=== PATIENT | male | born 1985 | race American Indian/Alaskan Native ===

== ENCOUNTER 2021-07-04 19:45 | Emergency (ER) | payer SELFPAY ==
[2021-07-05] MEDS ORDERED: ONDANSETRON 4 MG ODT TAB PO ONE (00:54)
[2021-07-05 01:22] LABS: Basophils % (Auto) 0.7 % (0.0-1.8); Eosinophils # (Auto) 0.2 K/mm3 (0.0-0.4); Eosinophils % (Auto) 2.5 % (0.0-4.3); Hemoglobin 15.7 gm/dl (11.8-15.2); Lymphocytes # (Auto) 2.9 K/mm3 (1.2-5.4); Lymphocytes % (Auto) 45.7 % (13.4-35.0); Mean Corpuscular HGB Conc 33 % (32-34); Mean Corpuscular Volume 84 fl (84-94); Monocytes # (Auto) 0.6 K/mm3 (0.0-0.8); Monocytes % (Auto) 9.9 % (0.0-7.3); Platelet Count 192 K/mm3 (140-440); Red Blood Count 5.62 M/mm3 (3.65-5.03); Red Cell Distribution Width 13.7 % (13.2-15.2)
--- NOTE | 2021-07-05 01:24 | Emergency Department Report ---
ED General Adult HPI - General Chief complaint: Back Pain/Injury Stated complaint: BACK PAIN/DIARRHEA Time Seen by Provider: 07/05/21 00:53 Source: patient Mode of arrival: Ambulatory Limitations: No Limitations - History of Present Illness Initial comments: Patient 36-year-old male who presents for right flank pain for the past 3 days patient states nausea and diarrhea. Been no fever or chills. However there is dysuria. Pain is described as cramping spasms at 5/10. Symptoms are exacerbated by movement. Patient is tolerating p.o. at this time without nausea vomiting however patient states he presented to the ER because he missed work yesterday and requires a work excuse to return to work. Patient drove self to ER patient appears alert and oriented x3 and nontoxic at this time. Severity scale (0 -10): 5 - Related Data Previous Rx's Medication Instructions Recorded Last Taken Type Loperamide [Imodium] 2 mg PO Q2HR PRN #12 capsule 07/05/21 Unknown Rx Allergies Allergy/AdvReac Type Severity Reaction Status Date / Time No Known Allergies Allergy Verified 07/05/21 01:34 ED Review of Systems ROS: Stated complaint: BACK PAIN/DIARRHEA Other details as noted in HPI Constitutional: denies: chills, fever Eyes: denies: eye pain, eye discharge, vision change ENT: denies: ear pain, throat pain Respiratory: denies: cough, shortness of breath, wheezing Cardiovascular: denies: chest pain, palpitations Endocrine: no symptoms reported Gastrointestinal: abdominal pain, nausea (Right flank), diarrhea. denies: vomiting, constipation, melena, hematochezia Genitourinary: denies: urgency, dysuria Musculoskeletal: back pain. denies: joint swelling, arthralgia Skin: denies: rash, lesions Neurological: denies: headache, weakness, paresthesias Psychiatric: denies: anxiety, depression Hematological/Lymphatic: denies: easy bleeding, easy bruising ED Past Medical Hx - Medications Home Medications: Home Medications Medication Instructions Recorded Confirmed Last Taken Type Loperamide [Imodium] 2 mg PO Q2HR PRN #12 capsule 07/05/21 Unknown Rx ED Physical Exam - General Limitations: No Limitations General appearance: alert, in no apparent distress - Head Head exam: Present: normocephalic, normal inspection - Eye Eye exam: Present: normal appearance, EOMI Pupils: Present: normal accommodation - ENT ENT exam: Present: mucous membranes moist - Neck Neck exam: Present: normal inspection, full ROM. Absent: tenderness, lymphadenopathy - Respiratory Respiratory exam: Present: normal lung sounds bilaterally. Absent: respiratory distress, wheezes, stridor, chest wall tenderness - Cardiovascular Cardiovascular Exam: Present: regular rate, normal rhythm, normal heart sounds. Absent: systolic murmur, diastolic murmur, rubs, gallop - GI/Abdominal GI/Abdominal exam: Present: soft, normal bowel sounds. Absent: distended, tenderness, guarding, rebound, rigid, bruit, hernia - Rectal Rectal exam: Present: deferred - Extremities Exam Extremities exam: Present: normal inspection, full ROM, normal capillary refill. Absent: tenderness - Back Exam Back exam: Present: normal inspection, full ROM, CVA tenderness (R). Absent: CVA tenderness (L) - Neurological Exam Neurological exam: Present: alert, oriented X3, CN II-XII intact, normal gait - Expanded Neurological Exam Expanded Patient oriented to: Present: person, place, time Speech: Present: fluid speech Best Eye Response (Duarte): (4) open spontaneously Best Motor Response (Duarte): (6) obeys commands Best Verbal Response (Duarte): (5) oriented Duarte Total: 15 - Psychiatric Psychiatric exam: Present: normal affect, normal mood - Skin Skin exam: Present: warm, dry, intact, normal color ED Course Vital Signs 07/04/21 20:15 Temperature 98.6 F Pulse Rate 74 Respiratory 20 Rate Blood Pressure 120/79 [Left] O2 Sat by Pulse 100 Oximetry ED Medical Decision Making - Lab Data Result diagrams: 07/05/21 00:58 07/05/21 00:58 Labs 07/05/21 07/05/21 00:58 00:58 WBC 6.3 RBC 5.62 H Hgb 15.7 H Hct 47.0 H MCV 84 MCH 28 MCHC 33 RDW 13.7 Plt Count 192 Lymph % (Auto) 45.7 H Hodgeman % (Auto) 9.9 H Eos % (Auto) 2.5 Baso % (Auto) 0.7 Lymph # (Auto) 2.9 Hodgeman # (Auto) 0.6 Eos # (Auto) 0.2 Baso # (Auto) 0.0 Seg Neutrophils % 41.2 Seg Neutrophils # 2.6 Sodium 141 Potassium 4.0 Chloride 103.5 Carbon Dioxide 26 Anion Gap 16 BUN 16 Creatinine 0.9 Estimated GFR > 60 BUN/Creatinine Ratio 18 Glucose 85 Calcium 10.0 Total Bilirubin 0.30 AST 18 ALT 17 Alkaline Phosphatase 69 Total Protein 7.3 Albumin 4.6 Albumin/Globulin Ratio 1.7 Lipase 23 - Radiology Data Radiology results: report reviewed, image reviewed ABDOMEN 1 VIEW INDICATION / CLINICAL INFORMATION: abd pain. COMPARISON: None available. FINDINGS: TUBES / LINES: None. BOWEL GAS PATTERN: No significant abnormality. FREE AIR / EXTRALUMINAL GAS: None seen. ADDITIONAL FINDINGS: No significant additional findings. IMPRESSION: 1. No significant abnormality. Signer Name: Compa Ahn MD Signed: 07/05/2021 1:38 AM Workstation Name: [id number] Transcribed By: LIO Dictated By: Compa Ahn MD Electronically Authenticated By: Compa Ahn MD Signed Date/Time: 07/05/21137 DD/ 7 TD/TT: - Medical Decision Making KUB is normal gas pattern. Labs are noted normal. Patient denies dysuria frequency or urgency. There is no fevers or chills. Plan DC to home, NSAIDs as needed as needed. Continue to hydrate. Follow-up with your doctor in 2 to 3 days. Patient continues to tolerate p.o. intake without nausea vomiting at this time. Patient DC'd home in no acute distress. Critical care attestation.: If time is entered above; I have spent that time in minutes in the direct care of this critically ill patient, excluding procedure time. ED Disposition Clinical Impression: Abdominal pain Qualifiers: Abdominal location: generalized Qualified Code(s): R10.84 - Generalized abdominal pain Disposition: HOME / SELF CARE / HOMELESS Is pt being admited?: No Does the pt Need Aspirin: No Condition: Stable Instructions: Abdominal Pain, Adult, Rehydration, Adult Additional Instructions: Take medications as prescribed. Follow-up with your doctor in 2 to 3 days. Return to emergency department should symptoms worsen. Prescriptions: Loperamide [Imodium] 2 mg PO Q2HR PRN #12 capsule PRN Reason: Diarrhea Referrals: MATY HERNANDEZ MD [Primary Care Provider] - 3-5 Days Forms: Work/School Release Form(ED) Time of Disposition: 02:27
[2021-07-05 01:35] LABS: Alanine Aminotransferase 17 units/L (7-56); Albumin 4.6 g/dL (3.9-5); BUN/Creatinine Ratio 18; Blood Urea Nitrogen 16 mg/dL (9-20); Hemolysis Index 6
--- NOTE | 2021-07-05 01:42 | XRay Report ---
ABDOMEN 1 VIEW INDICATION / CLINICAL INFORMATION: abd pain. COMPARISON: None available. FINDINGS: TUBES / LINES: None. BOWEL GAS PATTERN: No significant abnormality. FREE AIR / EXTRALUMINAL GAS: None seen. ADDITIONAL FINDINGS: No significant additional findings. IMPRESSION: 1. No significant abnormality. Signer Name: Compa Ahn MD Signed: 07/05/2021 1:38 AM Workstation Name: [id number]
[2021-07-05 02:24] LABS: Bilirubin,Urine NEG (Negative); Blood,Urine NEG (Negative); Color,Urine Yellow (Yellow); Mucus,Urine FEW /HPF; Protein,Urine <15 mg/dL mg/dL (Negative); Urobilinogen,Urine < 2.0 mg/dL (<2.0)
[2021-07-05 02:44] VITALS: BP 121/82
== END 2021-07-05 02:44 | disposition home or self-care (01) ==
LOC: ED 19:45
DX: R10.9 Unspecified abdominal pain (principal)
CPT/HCPCS: 36415; 74018; 80053; 81001; 83690; 85025; 99284; J3490; Q0162